=== PATIENT | female | born 1955 | race Caucasian/White ===

== ENCOUNTER 2019-02-24 07:34 | Day surgery (SDC) | payer MEDICARE, OTHER ==
[~2019-02-24] VITALS: Ht 167.6 cm; Wt 168.0 kg
[~2019-02-24 07:34] MED LIST: SODIUM CHLORIDE 0.9% 1,000 ML IV ONE
[2019-02-24] MEDS ORDERED: BENZOCAINE 20% 50 MCG/SPRAY 57 GM TP ONE (07:35)
[2019-02-24] MEDS ORDERED: LIDOCAINE 4% 50 ML SOLUTION TP ONE (07:35)
[2019-02-24] MEDS ORDERED: LIDOCAINE 2% 30 ML JELLY TP ONE (07:35)
[2019-02-24] MEDS ORDERED: MIDAZOLAM HCL 2 MG/2 ML VIAL ONE (08:06)
[2019-02-24] MEDS ORDERED: FentaNYL CITRATE-PF 100 MCG/2 ML VIAL ONE (08:06)
[2019-02-24] MEDS ORDERED: CYCL10 PO (09:17)
[2019-02-24] MEDS ORDERED: FLUT1BLS IH (09:17)
[2019-02-24] MEDS ORDERED: METO50 PO (09:17)
[2019-02-24] MEDS ORDERED: OMEP20 PO (09:17)
[2019-02-24] MEDS ORDERED: FLUT16H NASAL (09:17)
[2019-02-24] MEDS ORDERED: PRED10 PO (09:17)
[2019-02-24] MEDS ORDERED: ALBU2TAB42 PO (09:17)
[2019-02-24] MEDS ORDERED: GABA-531 PO (09:17)
[2019-02-24] MEDS ORDERED: LISI-662 PO (09:19)
[2019-02-24] MEDS ORDERED: HYDR-3707 PO (09:19)
[2019-02-24] MEDS ORDERED: LEVO100 PO (09:19)
[2019-02-24] MEDS ORDERED: MELO-107 PO (09:19)
[2019-02-24] MEDS ORDERED: EPIN0.3P3 IM (09:19)
[2019-02-24] MEDS ORDERED: RANI150T7 PO (09:19)
[2019-02-24] MEDS ORDERED: MONT10TA21 PO (09:19)
[2019-02-24] MEDS ORDERED: CITA10TA68 PO (09:19)
[2019-02-24] MEDS ORDERED: AMLO10TA7 PO (09:19)
[2019-02-24] MEDS ORDERED: MethylPREDNISolone SOD SUCC 125 MG/2 ML VIAL IVP ONE (09:30)
[2019-02-24] MEDS ORDERED: MethylPREDNISolone SOD SUCC 125 MG/2 ML VIAL ONE (09:40)
[2019-02-24] MEDS ORDERED: OXYGEN THERAPY IH SCH (20:00)
== END 2019-02-24 11:00 | disposition home or self-care (01) ==
LOC: SURGERY 07:34
PROVIDERS: ATTEND Internal Medicine Critical Care Medicine
DX: J38.4 Edema of larynx (principal); B37.0 Candidal stomatitis; K21.9 Gastro-esophageal reflux disease without esophagitis; I10 Essential (primary) hypertension; E78.5 Hyperlipidemia, unspecified; G47.30 Sleep apnea, unspecified; Z93.3 Colostomy status; F32.9 Major depressive disorder, single episode, unspecified; E03.9 Hypothyroidism, unspecified; E78.00 Pure hypercholesterolemia, unspecified; M19.90 Unspecified osteoarthritis, unspecified site; Z98.890 Other specified postprocedural states
CPT/HCPCS: 31623; 31624; 71045; 87015; 87070; 87101; 87206; 87220; J2250; J2930; J3010; J7030; 87205; 88108; 88312